=== PATIENT | male | born 1970 | race African-American/Black ===

== ENCOUNTER 2022-03-30 05:28 | Day surgery (SDC) | payer BC, OTHER ==
[2022-03-28 16:49] VITALS: BMI 32.6
[2022-03-30] MEDS ORDERED: PROPOFOL 60 ML ONE (10:56)
[2022-03-30] MEDS ORDERED: oxyCODONE HCL 5 MG TABLET PO PRN ×2 (12:06)
[2022-03-30] MEDS ORDERED: ONDANSETRON 4 MG/2 ML VIAL IVPUSH PRN (12:06)
[2022-03-30] MEDS ORDERED: LACTATED RINGERS SOLUTION 1,000 ML IV SCH (12:15)
[2022-03-30] MEDS ORDERED: OXYMETAZOLINE 0.05% NASAL SOLUTION 15 ML BOTTLE NS ONE (12:15)
[2022-03-30 13:46] VITALS: RESP 22
[2022-03-30 14:36] VITALS: BP 134/87; PULSE 74; TEMP 98
== END 2022-03-30 14:45 | disposition home or self-care (01) ==
LOC: JASU-SURG 05:28
PROVIDERS: ATTEND Otolaryngology
PROC: 0WJQ8ZZ Inspection of Respiratory Tract, Via Natural or Artificial Opening Endoscopic Approach (ICD-10-PCS; principal; 2022-03-30 11:30)
DX: G47.33 Obstructive sleep apnea (adult) (pediatric) (principal)
CPT/HCPCS: 94760

== ENCOUNTER 2022-05-25 04:10 | Day surgery (SDC) | payer BC, OTHER ==
[2022-05-24 17:19] VITALS: BMI 32.1
[2022-05-25] MEDS ORDERED: PROPOFOL 20 ML ONE (07:50)
[2022-05-25] MEDS ORDERED: MIDAZOLAM HCL 2 MG/2 ML SINGLE DOSE VIAL ONE (07:51)
[2022-05-25] MEDS ORDERED: SUCCINYLCHOLINE CHLORIDE 200 MG/10 ML SYRINGE ONE (07:51)
[2022-05-25] MEDS ORDERED: LIDOCAINE HCL/PF 2% SDV 5ML VIAL ONE (07:59)
[2022-05-25] MEDS ORDERED: ONDANSETRON 4 MG/2 ML VIAL ONE (08:29)
[2022-05-25] MEDS ORDERED: DEXAMETHASONE SOD PHOSPHATE 4 MG/1 ML VIAL ONE (08:29)
[2022-05-25] MEDS ORDERED: ceFAZolin SODIUM 1 GM VIAL ONE (08:29)
[2022-05-25] MEDS ORDERED: ceFAZolin SODIUM 1 GM VIAL IVPB ONE (08:30)
[2022-05-25] MEDS ORDERED: HYDROmorphone HCl 2 MG/ML VIAL ONE (08:38)
[2022-05-25] MEDS ORDERED: LIDOCAINE 1%/EPI 1:100000 (20 ML MULTI DOSE VIAL) INF ONE (08:45)
[2022-05-25] MEDS ORDERED: PROMETHAZINE HCL 25 MG/1 ML VIAL IVPUSH PRN (12:03)
[2022-05-25] MEDS ORDERED: ONDANSETRON 4 MG/2 ML VIAL IVPUSH PRN (12:03)
[2022-05-25] MEDS ORDERED: oxyCODONE HCL 5 MG TABLET PO PRN ×2 (12:03)
[2022-05-25] MEDS ORDERED: ACETAMINOPHEN 1000 MG/100 ML BAG IVPB ONE ×2 (12:04→13:38)
[2022-05-25] MEDS ORDERED: LACTATED RINGERS SOLUTION 1,000 ML IV SCH (12:15)
[2022-05-25] MEDS ORDERED: ACETAMINOPHEN INJECTION 100 ML IVPB ONE (12:20)
[2022-05-25 14:10] VITALS: RESP 18
[2022-05-25 15:42] VITALS: BP 115/64; PULSE 71; TEMP 96.8
== END 2022-05-25 16:00 | disposition home or self-care (01) ==
LOC: JASU-SURG 04:10
PROVIDERS: ATTEND Otolaryngology
PROC: 0JH60DZ Insertion of Multiple Array Stimulator Generator into Chest Subcutaneous Tissue and Fascia, Open Approach (ICD-10-PCS; 2022-05-25)
PROC: 05H Upper Veins, Insertion (ICD-10-PCS; principal; 2022-05-25 08:00)
DX: G47.33 Obstructive sleep apnea (adult) (pediatric) (principal)
CPT/HCPCS: 64582; 95977; L8679; 70360-TC-FY; 71045-TC-FY; 94760; C1778